=== PATIENT | female | born 1955 | race Caucasian/White ===

== ENCOUNTER 2020-08-19 10:33 | Day surgery (SDCO) | payer MEDICARE ==
[~2020-08-19 10:33] MED LIST: ALLERGY RELIEF10 MG PO; ANTIVERT25 MG PO; CELEXA40 MG PO; CERTAGEN1 EACH PO; DULCOLAX5 MG PO; FEOSOL325 MG PO; FEOSOL45 MG PO; FERROUS SULFATE PO; LISINOPRIL-HCT1 EACH PO; OXYCODONE-ACET1 EAC1 PO; POTASSIUM99 MG PO; PRILOSEC20 MG PO; REQUIP0.25 MG PO; TRAMADOL HCL50 MG PO; VITAMIN B-12500 MCG PO; XARELTO10 MG PO
[2020-08-19 11:05] LABS: BASOPHIL 0.1 % (0-2); EOSINOPHIL 0.1 % (0-7); HCT 38.2 % (37.0-47.0); HGB 12.5 g/dl (12.5-16.0); LYMPHOCYTE 2.5 % (15-48); MCH 29.9 pg (25.0-31.0); MCHC 32.7 g/dL (32.0-36.0); MCV 91.4 fL (78.0-100.0); MONOCYTE 0.5 % (0-12); MPV 10.1 fL (6.0-9.5); NEUTROPHIL 96.5 % (41-80); NRBC 0; PLT 243 K/uL (150-400); RBC 4.18 M/uL (4.20-5.40)
[2020-08-19 11:11] LABS: BILIRUBIN - TOTAL 1.7 mg/dL (0.2-1.0); BUN/CREAT RATIO (CALC) 25.9 RATIO; CREATININE 0.85 mg/dL (0.51-0.95); GLOBULIN (CALCULATION) 3.5 g/dL; INR 1.09 (0.9-1.2); POTASSIUM 3.3 mmol/L (3.5-5.1); PROTHROMBIN TIME 13.4 SECONDS (11.4-13.6); PTT 25.5 SECONDS (22.2-34.7); TOTAL PROTEIN 7.5 g/dL (6.4-8.2)
[2020-08-20 07:01] LABS: BASOPHIL 0.1 % (0-2); EOSINOPHIL 0.1 % (0-7); HCT 35.7 % (37.0-47.0); HGB 11.3 g/dl (12.5-16.0); LYMPHOCYTE 2.2 % (15-48); MCH 29.4 pg (25.0-31.0); MCHC 31.7 g/dL (32.0-36.0); MPV 10.7 fL (6.0-9.5); NRBC 0; PLT 194 K/uL (150-400); RBC 3.84 M/uL (4.20-5.40); RDW 12.6 % (11.5-14.0)
[2020-08-20 07:14] LABS: WBC 16.1 K/uL (4.0-10.5)
[2020-08-20 07:25] LABS: ALBUMIN 2.9 g/dL (3.4-5.0); BILIRUBIN - TOTAL 1.9 mg/dL (0.2-1.0); BUN/CREAT RATIO (CALC) 18.6 RATIO; CREATININE 0.97 mg/dL (0.51-0.95); POTASSIUM 4.2 mmol/L (3.5-5.1); TOTAL PROTEIN 5.9 g/dL (6.4-8.2)
[2020-08-20] MEDS ORDERED: AUGMENTIN 500-1 EACH PO (09:53)
[2020-08-20] MEDS ORDERED: LACTINEX1 EACH PO (09:55)
[2020-08-20] MEDS ORDERED: MIRALAX17 GM PO (09:56)
[2020-08-20] MEDS ORDERED: PERCOCET 5-3251 EACH PO (10:51)
== END 2020-08-20 11:50 | disposition home or self-care (01) ==
LOC: FER 10:33 → FAS 13:26 → FMS 17:59
PROVIDERS: Emergency Medicine; ADMIT Surgery
DX: K81.2 Acute cholecystitis with chronic cholecystitis (principal); K82.0 Obstruction of gallbladder; K43.6 Other and unspecified ventral hernia with obstruction, without gangrene; R94.5 Abnormal results of liver function studies; K57.30 Diverticulosis of large intestine without perforation or abscess without bleeding; Z87.891 Personal history of nicotine dependence; Z20.822 Contact with and (suspected) exposure to COVID-19
CPT/HCPCS: 36415; 71045; 71275; 74181; 76000; 80053; 83690; 84484; 85025; 85379; 85610; 85730; 93005; G0378; J0295; J1100; J1170; J1885; J2250; J2405; J2543; J2704; J2710; J3010; J7030; J7120; Q9967; U0002